=== PATIENT | male | born 1955 | race Caucasian/White ===

== ENCOUNTER 2018-08-17 15:25 | Inpatient (IN) | payer BC, OTHER ==
[~2018-08-17] VITALS: Ht 182.9 cm; Wt 84.4 kg
[2018-08-17 16:29] VITALS: BP 99/78
[2018-08-17] MEDS ORDERED: LIPITOR80 MG PO (16:50)
[2018-08-17] MEDS ORDERED: CEFUROXIME250 MG PO (16:53)
[2018-08-17] MEDS ORDERED: PREDNISONE 20 M20 MG PO (16:53)
[2018-08-17] MEDS ORDERED: LASIX 40 MG TAB40 M2 PO (16:53)
[2018-08-17] MEDS ORDERED: LOPRESSOR50 PO (16:54)
[2018-08-17] MEDS ORDERED: KLOR-CON 1010 MEQ PO (16:54)
[2018-08-17] MEDS ORDERED: XANAX 0.5 MG0.5 MG PO (16:55)
[2018-08-17] MEDS ORDERED: NORCO 5-325 TA1 EACH PO (16:56)
[2018-08-17] MEDS ORDERED: NASAL SPRAY30 ML NS (16:57)
[2018-08-17 17:07] LABS: HEMATOCRIT 50.9 % (42.0-52.0); HEMOGLOBIN 17.5 gm/dL (14.0-18.0); MCH 31.8 pg (26.0-34.0); MCHC 34.4 g/dL (28.0-37.0); MCV 92.3 fL (80.0-100.0); RBC 5.51 mil/uL (4.50-6.00); RDW 13.2 % (10.5-14.5); WBC 14.9 thou/uL (4.0-11.0)
[2018-08-17 17:19] LABS: APTT 24.5 Seconds (24.5-32.8); INR 1.1; PROTIME 11.7 Seconds (9.3-11.4)
[2018-08-17 17:33] LABS: CALCIUM 9.4 mg/dL (8.5-10.1); CREATININE 1.3 mg/dL (0.7-1.3); MAGNESIUM 2.1 mg/dL (1.8-2.4); POTASSIUM 4.3 mmol/L (3.5-5.1); TOTAL PROTEIN 6.8 g/dL (6.4-8.2)
[2018-08-17 17:45] LABS: TSH 0.756 uIU/mL (0.358-3.740)
[2018-08-17 17:47] LABS: BF NUCLEATED CELLS 3295; BF RBC 247550
[2018-08-17 17:49] LABS: CLARITY CLOUDY; COLOR RED
--- NOTE | 2018-08-17 19:21 | NUR ---
Patient arrived DA this evening. Admit with SOB and left pleural effusion. Pulmonary consult. Thoracentesis this evening, patient reports 2L of fluid off left side. Bandaid to left back, intact. Reports improvement in breathing since thoracentesis. Maintaining oyxgen saturations on 3L NC. Blood pressures soft, but holding beta fredi and Lasix at this time. Fall precautions in place. Calls appropriately for assistance. Bilateral SCDs. Admission history, education and assessment completed, along with med rec. Complaints of chronic back pain, treated with PRN [place]. Slowly progressing towards POC. Will continue to monitor.
[2018-08-17 20:00] VITALS: BP 114/77
[2018-08-17 20:48] LABS: BF MACROPHAGE 46; BF NEUTROPHILS 9; SOURCE PLEURAL; TOTAL VOLUME 60 mL
[2018-08-18 01:03] VITALS: BP 135/86
[2018-08-18 05:00] VITALS: BP 115/77
[2018-08-18 05:48] LABS: HEMATOCRIT 47.3 % (42.0-52.0); HEMOGLOBIN 16.4 gm/dL (14.0-18.0); MCH 32.1 pg (26.0-34.0); MCHC 34.6 g/dL (28.0-37.0); MCV 92.7 fL (80.0-100.0); RBC 5.1 mil/uL (4.50-6.00); RDW 13.2 % (10.5-14.5); WBC 14.4 thou/uL (4.0-11.0)
[2018-08-18 06:06] LABS: CALCIUM 8.9 mg/dL (8.5-10.1); CREATININE 1.3 mg/dL (0.7-1.3); MAGNESIUM 2.1 mg/dL (1.8-2.4); POTASSIUM 4.6 mmol/L (3.5-5.1)
--- NOTE | 2018-08-18 06:06 | NUR ---
PT MAKING PROGRESS TOWARDS GOALS. PT REPORTING THAT HE IS "BREATHING MUCH EASIER NOW." UP TO TOILET ONCE, AMBULATING THERE AND BACK WITHOUT OXYGEN. NO OBSERVABLE SOA. PT STATING HE WOULD NOT HAVE BEEN ABLE TO DO THAT YESTERDAY. SEE CHARTING.
[2018-08-18 07:11] VITALS: BP 112/74
[2018-08-18 09:07] LABS: BODY FLUID ALBUMIN 2.4 g/dL (()); BODY FLUID AMYLASE 27 U/L (()); BODY FLUID GLUCOSE 35 mg/dL (()); BODY FLUID LDH 1493 IU/L (()); BODY FLUID PROTEIN 4.1 g/dL (())
[2018-08-18 09:14] LABS: SOURCE THORACENTESIS
[2018-08-18 09:15] LABS: SOURCE THORACENTESIS
--- NOTE | 2018-08-18 10:18 | 2DMMODE ---
[facility] [employer] [place] [address] 2 D/M-MODE ECHOCARDIOGRAM Name: OSPINADANGELO Room #: 364-P ADM IN M.R.#: [id number] ������������� Admission: 08/17/18 ������������� Attend Phys: Gael Velasquez MD Discharge: ��� ������������� ��� Date of : 53 Date of Service: 08/18/18 1018 �� Report #: [id number] �������� ��������������������������������������������[id number] THIS REPORT FOR: //name// APPROVED REPORT Study performed: 08/18/2018 09:28:24 EXAM: Comprehensive 2D, Doppler, and color-flow Echocardiogram Patient Location: Echo lab Room #: 364 Status: routine BSA: 2.26 HR: 89 bpm BP: 112/74 mmHg Rhythm: NSR Other Information Study Quality: Adequate Indications Pleural effusions. Hx: CABG, COPD 2D Dimensions RVDd: 38.55 mm IVSd: 10.36 (7-11mm) LVOT Diam: 21.73 (18-24mm) LVDd: 48.78 mm PWd: 10.88 (7-11mm) LVDs: 30.39 (25-40mm) Aortic Root: 33.94 mm Volumes Left Atrial Volume (Systole) Single Plane 4CH: 42.19 mL Single Plane 2CH: 53.30 mL LA ESV Index: 22.00 mL/m2 Aortic Valve AoV Peak Claude.: 1.61 m/s AO Peak Gr.: 10.39 mmHg LVOT Max P.60 mmHg LVOT Max V: 1.18 m/s YAQUELIN Vmax: 2.72 cm2 Mitral Valve E/A Ratio: 0.8 MV Decel. Time: 167.32 ms MV E Max Claude.: 0.78 m/s [facility] [address] [place] [address] 2 D/M-MODE ECHOCARDIOGRAM Name: DANGELO OSPINA Room #: 364-P [facility]#: [id number] ������������� Admission: 08/17/18 ������������� Attend Phys: Gael Velasquez MD Discharge: ��� ������������� ��� Date of : 53 Date of Service: 08/18/18 1018 �� Report #: [id number] �������� ��������������������������������������������[id number] MV A Claude.: 0.98 m/s MV PHT: 48.52 ms IVRT: 96.89 ms Pulmonary Valve PV Peak Claude.: 1.13 m/s PV Peak Gr.: 5.09 mmHg Pulmonary Vein P Vein S: 0.68 m/s P Vein A: 0.29 m/s P Vein D: 0.57 m/s P Vein A Dur.: 107.3 msec P Vein S/D Ratio: 1.19 Tricuspid Valve RAP Estimate: 5.00 mmHg Left Ventricle The left ventricle is normal size. There is normal left ventricular wall thickness. Left ventricular systolic function is normal. LVEF is 55%. Mild diastolic dysfunction is present (impaired relaxation pattern). Right Ventricle The right ventricle is normal size. The right ventricular systolic function is normal. Atria The left atrium size is normal. The right atrium size is normal. Aortic Valve The aortic valve is normal in structure. No aortic regurgitation is present. There is no aortic valvular stenosis. Mitral Valve The mitral valve is normal in structure. There is no mitral valve regurgitation noted. No evidence of mitral valve stenosis. Tricuspid Valve The tricuspid valve is normal in structure. Trace tricuspid regurgitation. Unable to assess PA pressure. Pulmonic Valve Pulmonic valve is not well visualized. Trace pulmonic regurgitation. Great Vessels [facility] [employer] [place] [address] 2 D/M-MODE ECHOCARDIOGRAM Name: DANGELO OSPINA Room #: 364-P ADM IN M.R.#: [id number] ������������� Admission: 08/17/18 ������������� Attend Phys: Gael Velasquez MD Discharge: ��� ������������� ��� Date of : 53 Date of Service: 08/18/18 1018 �� Report #: [id number] �������� ��������������������������������������������[id number] The aortic root is normal in size. Ascending aorta is not well visualized. IVC is normal in size and collapses >50% with inspiration. Pericardium Cannot rule out small pericardial effusion vs. left pleural effusion. <Conclusion> The left ventricle is normal size. LVEF is 55%. The aortic valve is normal in structure. The mitral valve is normal in structure. The tricuspid valve is normal in structure. Trace tricuspid regurgitation. Unable to assess PA pressure. Pulmonic valve is not well visualized. Trace pulmonic regurgitation. Cannot rule out small pericardial effusion vs. left pleural effusion. ��������������������������������������������� <ELECTRONICALLY SIGNED> ���������������������������������������� By: Ga Remy MD ��������������������������������������������� 08/18/18 1018 [id number] Ga Remy MD /INF
[2018-08-18 11:01] VITALS: BP 123/80
[2018-08-18] MEDS ORDERED: TOPROL XL50 MG PO (12:52)
[2018-08-18] MEDS ORDERED: PRINIVIL20 MG PO (12:52)
[2018-08-18] MEDS ORDERED: CEFUROXIME250 MG PO (13:11)
--- NOTE | 2018-08-18 15:25 | NUR ---
INITIAL ASSESSMENT: Received consult for discharge planning and possible Home O2. SW reviewed chart and spoke with attending physician. Pt was a direct admission from [facility]. Pt with hx of COPD and CABB x 6. Pt had thoracentesis yesterday due to left sided pleural effusion. SW met with pt at bedside. Introduced role of SW. Pt is alert/orientated x 4. Pt reports he lives at home with his and son in [place]. 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 Prior to admission, pt was independent with ADLs. Pt does not use any DME. No hx of HH services or SNF/Rehab placement. Pt's PCP, Dr. Ronald oHlder, recently retired. Pt states his new PCP is Dr. Ricardo Lim at [facility]. Pt is currently off O2. Pt is hoping to discharge tomorrow. SW is following to assist as needed with discharge planning.
[2018-08-18 15:33] VITALS: BP 110/75
--- NOTE | 2018-08-18 18:01 | NUR ---
Assumed care of patient at 0700. Patient has maintained oxygen saturations on RA; does seem to drop below 90% (85-88%) with activity, but is able to purse- lip breathe and recover on own. Continue to closely monitor. Otherwise, VSS. Patient continues to feel that breathing is much improved compared to yesterday. Complaints of chronic lower back pain; controlled with PRN [place]. CT chest completed today; see results. Displays steady gait; up ad gayla in room. Encouraged to call for assistance if needed. Progressing towards POC. Will continue to monitor.
[2018-08-18 18:49] VITALS: BP 124/79
[2018-08-19 03:08] LABS: HEMATOCRIT 46.5 % (42.0-52.0); HEMOGLOBIN 16.3 gm/dL (14.0-18.0); MCH 32.5 pg (26.0-34.0); MCV 92.7 fL (80.0-100.0); RBC 5.02 mil/uL (4.50-6.00); RDW 13.1 % (10.5-14.5); WBC 19.3 thou/uL (4.0-11.0)
[2018-08-19 03:36] LABS: CALCIUM 9.3 mg/dL (8.5-10.1); CREATININE 1.2 mg/dL (0.7-1.3); MAGNESIUM 2.4 mg/dL (1.8-2.4); POTASSIUM 4.6 mmol/L (3.5-5.1)
[2018-08-19 03:55] VITALS: BP 165/85
--- NOTE | 2018-08-19 04:40 | NUR ---
PT MAKING SLOW PROGRESS TOWARDS GOALS. LUNGS WITH FAINT WHEEZING OVER ALL MORENO, DIMINISHED ON BOTH SIDES THOUGH MUCH GREATER ON THE LEFT. PT REPORTS HE IS STILL BREATHING MUCH BETTER THAN BEFORE HE CAME INTO THE HOSPITAL. THIS AM O2 AT ON ROOM AIR 86-87%. O2 STARTED AT 3L PER NC=92%.
[2018-08-19 08:30] VITALS: BP 126/84
[2018-08-19 11:28] VITALS: BP 122/84
[2018-08-19] MEDS ORDERED: AUGMENTIN 875-1 EACH PO (14:03)
[2018-08-19] MEDS ORDERED: VENTOLIN HFA 1818 GM INH (14:04)
[2018-08-19] MEDS ORDERED: PREDNISONE 10 M10 MG PO (14:04)
--- NOTE | 2018-08-19 14:09 | NUR ---
SW reviewed chart and spoke with nursing and attending physician. Pt is progressing towards goals for discharge. Rest/exercise oximetry ordered to evaluate pt for possible home O2. Pt was 88% on RA earlier today. Awaiting results. Pt has discharge orders. SW notified [facility] liaison to see if they take pt's insurance. SW is following to assist as needed with discharge planning.
[2018-08-19 14:33] VITALS: BP 122/84
[2018-08-19] MEDS ORDERED: ALPRAZOLAM 0.50.5 M1 PO (15:10)
[2018-08-19] MEDS ORDERED: HYDROCODONE-AP1 EAC6 PO (15:10)
--- NOTE | 2018-08-20 16:06 | PATH ---
[facility] [address] [address] PATHOLOGY RPT PROCEDURE Name: DANGELO OSPINA Room #: 364-P DIS IN M.R.#: [id number] ������������������ Admission: 08/17/18 ������������������ Date of : 53 Discharge: 08/19/18 Report #: [id number] Path Case #: [id number] Note [facility] Accession Number: [id number] TESTS RESULT FLAG UNITS REF RANGE LAB Clinician Provided Cytology Information No. of containers..01 Other (Miscellaneous) Source: [A] 01 PLEURAL FLUID DIAGNOSIS: [A] 02 PLEURAL FLUID POSITIVE FOR MALIGNANT CELLS. METASTATIC CARCINOMA IS PRESENT. THIS INTERPRETATION INCLUDES EVALUATION OF A CELL BLOCK. Comment: Examination shows aggregates and clusters of cells comprised of high nuclear to cytoplasmic ratio, abundant nuclear pleomorphism and ample cytoplasm. Based on the finding of lung mass along with mediastinal adenopathy, a panel of immunohistochemical stains is ordered. The cells show strong membranous reactivity to CK7, rare cells are reactive to Napsin A and approximately 10 percent of the cells show strong nuclear reactivity to TTF-1. CK20, p63, calretinin (reactive in the mesothelial cells),and desmin (reactive within the mesothelial cells)are non-reactive within the malignant cells. Based on the morphology and the immunohistochemical staining pattern, the tumor likely represents a metastatic adenocarcinoma of lung origin within the pleural fluid. Clinical correlation is required. Case is coreviewed by Dr. Madi Levy. The preliminary findings of this case were discussed with Dr. Ad Gonzales in the evening of 08/19/18. Pathologist ICD10: 02 J91.0 Signed out by: Cindy Aleman MD, Pathologist NPI- [id number] Performed by: Ayaan Gutiérrez, Information Technology Technician ([facility]) Gross description: 01 15ML, BRIGHT RED, CLOUDY /LCS FLAG LEGEND: L-Low Normal,H-High Normal,LL-Alert Low,HH-Alert High <-Panic Low,>-Panic High,A-Abnormal,AA-Critical Abnormal Performed at: [address] [address] PATHOLOGY RPT PROCEDURE Name: DANGELO OSPINA Room #: 364-P DIS IN M.R.#: [id number] ������������������ Admission: 08/17/18 ������������������ Date of : 53 Discharge: 08/19/18 Report #: [id number] Path Case #: [id number] [place] [address] Jose Martin Fish MD, 02 [facility] [address] [address] Cindy Aleman MD, Specimen Comment: A courtesy copy of this report has been sent to Specimen Comment: [phone]. Specimen Comment: Report sent to Performed at: 01 [facility] [address], [place], [place] [id number] MD Jose Martin Fish MD Phone: [phone]
== END 2018-08-19 14:00 | disposition home or self-care (01) | DRG 189 ==
LOC: 3W 15:25 → ENTRNSPT 08-19 15:17 → EDTRNSPTSTS 08-19 15:26
PROVIDERS: ADMIT Internal Medicine
PROC: 0W9B3ZZ Drainage of Left Pleural Cavity, Percutaneous Approach (ICD-10-PCS; principal; 2018-08-18)
DX: J96.01 Acute respiratory failure with hypoxia (principal); J90 Pleural effusion, not elsewhere classified; J44.1 Chronic obstructive pulmonary disease with (acute) exacerbation; I25.10 Atherosclerotic heart disease of native coronary artery without angina pectoris; E78.5 Hyperlipidemia, unspecified; F41.1 Generalized anxiety disorder; E66.9 Obesity, unspecified; I50.9 Heart failure, unspecified; I11.0 Hypertensive heart disease with heart failure; R91.8 Other nonspecific abnormal finding of lung field; R59.0 Localized enlarged lymph nodes; I95.9 Hypotension, unspecified; Z95.1 Presence of aortocoronary bypass graft; Z88.2 Allergy status to sulfonamides; Z87.891 Personal history of nicotine dependence; Z68.25 Body mass index [BMI] 25.0-25.9, adult
CPT/HCPCS: 10779; 10879

== ENCOUNTER 2018-09-06 14:28 | Inpatient (IN) | payer BC, OTHER ==
[~2018-09-06] VITALS: Ht 175.3 cm; Wt 91.6 kg
--- NOTE | ~2018-09-06 | HC ---
[facility] [place] [address] [place] [address] CONSULTATION Name: DANGELO OSPINA Room #: 218-P [facility] IN M.R.#: [id number] Admission: 09/06/18 ������������������ Attend Phys: Katherine Cunningham Discharge: 09/09/18 ������������������ Date of : 53 Report #: [id number] THIS REPORT FOR: //name// CC: RYAN physician/PCP Katherine Cunningham Physician staff DATE OF SERVICE: 09/09/2018 HISTORY OF PRESENT ILLNESS: This 63-year-old white male was recently admitted to [facility] with complaints of shortness of breath and found to have a large left-sided pleural effusion. This was tapped and within 2 weeks has recurred. This hemorrhagic fluid was sent for cytology testing and reveals adenocarcinoma. Following recent 2 liter removal of additional fluid and placement of PleurX catheter, he is much less short of breath. He was seen today in consultation with his daughter regarding potential evaluation and treatment. His recent history is negative for any shaking chills or fevers. He denies new pain or masses. PAST MEDICAL HISTORY: Significant for previous diagnosis of chronic obstructive lung disease and was followed with Dr. Christian Mcleanler [facility]. PAST SURGICAL HISTORY: Previous bypass grafting x 6 in 2017 along with tonsillectomy and hernia repair. ALLERGIES: HE IS ALLERGIC TO SULFA. MEDICATIONS: As listed on the MFR. SOCIAL HISTORY: Significant for a reformed smoker who stopped approximately a year ago after 40 pack years of at least a pack of cigarettes per day. FAMILY HISTORY: Negative/noncontributory. REVIEW OF SYSTEMS: As in the history of present illness. PHYSICAL EXAMINATION: GENERAL: Shows him to be alert. HEENT: Normocephalic. NECK: Supple. CHEST: Showed coarse breath sounds with catheter on the left and diminished sounds in the left base. ABDOMEN: Soft with no organomegaly or mass. [facility] [address] [place] [address] CONSULTATION Name: DANGELO OSPINA Room #: 218-P DIS IN ..#: [id number] Admission: 09/06/18 ������������������ Attend Phys: Katherine Cunningham Discharge: 09/09/18 ������������������ Date of : 53 Report #: [id number] EXTREMITIES: No clubbing, cyanosis. He does have bilateral lower extremity edema. NEUROLOGIC: No focal localizing signs. PSYCHIATRIC: Not agitated or confused. LYMPHATICS: Did not reveal any palpable supraclavicular adenopathy though there was some fullness. HOSPITAL COURSE: Earlier CT scanning from [facility] on 08/16/2018 showed the large left-sided pleural effusion in addition to mediastinal and epicardial lymphadenopathy. He also had bilateral pulmonary infiltrates and nodules. ASSESSMENT: Stage 4 adenocarcinoma/presumed non-small cell lung cancer. PLAN: We discussed that this is a nonsurgical incurable scenario though clearly is treatable. He wishes to pursue further therapy and we have discussed performing a mutational testing on his peripheral blood as the cytology would not have adequate material for that to take place. The fact that he is a smoker if this is non-small cell lung cancer, it is unlikely that EGFR would be positive for targetable mutations. In that scenario, a typical treatment will be with chemotherapy and discussed possible addition of checkpoint inhibitor in conjunction. A PET scan will be performed for further staging purposes and also to rule out a possible alternative primary site with metastatic disease to the lung. He is feeling better and is anxious to be discharged. I will schedule scan, laboratory testing to be performed as an outpatient and see him when the results are known. Thanks for allowing me to see him in consultation and allowing me to participate in his care. ��������������������������������������������� ���������������������������������������� By: ��������������������������������������������� 2215 1844 Aleisha Mccoy MD /nt
[~2018-09-06 14:28] MED LIST: ALPRAZOLAM 0.50.5 M1 PO; AUGMENTIN 875-1 EACH PO; CEFUROXIME250 MG PO; HYDROCODONE-AP1 EAC6 PO; KLOR-CON 1010 MEQ PO; LASIX 40 MG TAB40 M2 PO; LIPITOR80 MG PO; LOPRESSOR50 PO; NASAL SPRAY30 ML NS; NORCO 5-325 TA1 EACH PO; PREDNISONE 10 M10 MG PO; PREDNISONE 20 M20 MG PO; PRINIVIL20 MG PO; TOPROL XL50 MG PO; VENTOLIN HFA 1818 GM INH; XANAX 0.5 MG0.5 MG PO
[2018-09-06] MEDS ORDERED: PREDNISONE 5 MG5 M1 PO (16:54)
[2018-09-06] MEDS ORDERED: WELLBUTRIN SR100 MG PO (16:55)
[2018-09-06] MEDS ORDERED: TYLENOL325 M1 PO (16:55)
[2018-09-06] MEDS ORDERED: LASIX 40 MG TAB40 M2 PO (16:56)
[2018-09-06] MEDS ORDERED: ASPIRIN81 M2 PO (16:56)
[2018-09-06] MEDS ORDERED: KLOR-CON 1010 MEQ PO (16:56)
[2018-09-06] MEDS ORDERED: CYMBALTA30 MG PO (16:56)
[2018-09-06] MEDS ORDERED: ZESTRIL10 MG PO (16:57)
[2018-09-06] MEDS ORDERED: NICOTINE TRANSD21 M1 (16:57)
[2018-09-06 17:00] VITALS: BP 116/90
--- NOTE | 2018-09-06 18:36 | NUR ---
PATIENT ADMITTED TO CCU FROM [facility] ER. ON 4L OXYGEN NC. SINUS TACH ON THE MONITOR. HAD LEFT SIDED THORACENTESIS DONE IN MORNING SUN ER. 2L REMOVED. ADMISSION HISTORY AND ASSESSMENTS COMPLETE. MED REC UP TO DATE. PT CURRENTLY HAVING A CT OF CHEST. COMPLAINS OF CHRONIC BACK PAIN. WAITING FOR PRN HYDROCODONE TO BE VERIFIED BY PHARMACY.
[2018-09-06 20:29] VITALS: BP 132/78
[2018-09-07 04:14] LABS: BASOPHILS 0.2 % (0.0-2.0); HEMATOCRIT 47.6 % (42.0-52.0); HEMOGLOBIN 16.5 gm/dL (14.0-18.0); LYMPHOCYTES 2.6 % (24.0-44.0); MCH 32.1 pg (26.0-34.0); MCHC 34.8 g/dL (28.0-37.0); MCV 92.5 fL (80.0-100.0); MONOCYTES 1.7 % (1.0-8.0); PLATELET COUNT 301 thou/uL (150-400); POLYS 95.5 % (36.0-66.0); RBC 5.15 mil/uL (4.50-6.00); RDW 13.7 % (10.5-14.5); WBC 10.4 thou/uL (4.0-11.0)
[2018-09-07 04:17] LABS: CALCIUM 9.3 mg/dL (8.5-10.1); CREATININE 1.2 mg/dL (0.7-1.3); POTASSIUM 4.2 mmol/L (3.5-5.1)
[2018-09-07 05:17] VITALS: BP 137/91
--- NOTE | 2018-09-07 07:35 | NUR ---
ASSUME CARE 1900. PT/VITALS STABLE. CHRONIC BACK PAIN NOTED. HYDROCODONE FOR RELIEF. PT ON 4LNC. THORACENTESIS DONE ON ADMISSION. PT STATES HE FEELS MUCH BETTER NOW THAN WHEN HE CAME IN. ASSESSMETN CHARTED. PROGRESSING WELL WITH POC. PLAN IS TO CONTINUE TO MONITOR RESPIRATORY FUNCTION. WILL CONTINUE TO FOLLOW WITH POC
[2018-09-07 08:00] VITALS: BP 120/72
[2018-09-07 12:21] VITALS: BP 116/73
[2018-09-07 16:00] VITALS: BP 125/86
[2018-09-07 19:05] VITALS: BP 131/90
[2018-09-08] VITALS (7 sets, daily range): BP systolic 123–143; BP diastolic 78–90
--- NOTE | 2018-09-08 03:33 | NUR ---
ASSUMED PT CARE AT 1900. PT A/OX4, VITAL SIGNS STABLE, ASSESSMENT CHARTED. PAIN ADEQAUTELY MANAGED WITH PAIN MEDICATION. NO COMPLAINTS OF CHEST PAIN OR SOB. PT ON 4L O2. RESTED WELL THROUGH THE NIGHT. NPO AT MIDNIGHT FOR PROCEDURE. PROGRESSING TOWARD PLAN OF CARE. WILL CONTINUE TO MONITOR.
[2018-09-08 04:07] LABS: HEMATOCRIT 44.9 % (42.0-52.0); HEMOGLOBIN 15.8 gm/dL (14.0-18.0); MCH 32.4 pg (26.0-34.0); MCHC 35.2 g/dL (28.0-37.0); MCV 92.2 fL (80.0-100.0); RBC 4.87 mil/uL (4.50-6.00); RDW 13.4 % (10.5-14.5); WBC 17.7 thou/uL (4.0-11.0)
[2018-09-08 04:11] LABS: CALCIUM 9.4 mg/dL (8.5-10.1); CREATININE 1.1 mg/dL (0.7-1.3); POTASSIUM 3.7 mmol/L (3.5-5.1)
[2018-09-08 15:17] LABS: INR 1.2; PROTIME 12.1 Seconds (9.3-11.4)
--- NOTE | 2018-09-08 16:50 | NUR ---
Met with patient, and family at bedside. patient admitted pleural effusion and today rec pluerx cath placement. 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 All needs on one level in home. Patient is wanting home health at mo. PCP Dr Coffman. Patient has home oxygen via [employer] from [place] 4 liters at rest 5 liters with activity.
[2018-09-09] VITALS (7 sets, daily range): BP systolic 115–136; BP diastolic 76–99
--- NOTE | 2018-09-09 03:37 | NUR ---
ASSUMED PT CARE AT 1900. PT A/OX4, VITAL SIGNS STABLE, ASSESSMENT CHARTED. PAIN ADEQAUTELY MANAGED WITH PAIN MEDICATION. LEFT LATERAL DRAINAGE SITE DRESSING INTACT. PT RESTED WELL THROUGH THE NIGHT. PROGRESSING TOWARD PLAN OF CARE. WILL CONTINUE TO MONITOR.
--- NOTE | 2018-09-09 12:08 | NUR ---
FAXED REFERRAL TO A HH SPOKE WITH ADM. THEY RECEIVED REFERRAL AND CAN ACCEPT AT [place] AND THEY WILL DO A BEDSIDE VISIT TODAY WITH PT. DCP TO FOLLOW.
--- NOTE | 2018-09-09 12:19 | NUR ---
Followup visit made with pt at bedside. Possible dc home later today pending onc consult and recommendations. Pleurax cath in place and pt has teaching kit and supplies. Nursing to do instruction. Pt agreeable to RN visits at [place]. He has used [facility] in the past and they can accept him at [facility]. Their liason is here this am to visit with the pt. Pt has home o2 in place. Dtr is here from [place]. No other cm interventions indicated at this time. will fax Hh orders to the [facility] at [facility].
[2018-09-09] MEDS ORDERED: LASIX 40 MG TAB40 M2 PO (16:51)
--- NOTE | 2018-09-09 17:57 | NUR ---
ASSESSMENT DOCUMENTED. PT ALERT AND ORIENTED. RECEIVED PRN PAIN MED FOR LEFT SIDE PAIN. SEEN BY DR. HARTLEY, DR. GARCIA, AND DR. ASCENCIO. ORDERS GIVEN TO DISCHARGE PT TO HOME. DISCHARGE INSTRUCTIONS GIVEN TO PT AND DAUGHTER. PT LEFT THE FACILITY ACCOMPANIED BY THE DAUGHTER.
[2018-09-10 10:07] VITALS: BP 120/82
--- NOTE | 2018-09-10 12:13 | NUR ---
PT. DISCHARGED TO HOME WITH [facility] LEFT IN THE EVENING DCP FAXED DC ORDERS/SUMMARY TO [facility] SPOKE WITH JAKE AND SHE RECEIVED DC ORDERS AND WILL NOTIFY PT. TIME OF VISITS, SHE ALSO WANTED TO KNOW INFO REGARDING PLEURX CATH WHICH PT. WILL BE MANAGING AT HOME HIMSELF.
== END 2018-09-09 18:03 | disposition home health service (06) | DRG 180 ==
LOC: 2N 14:28 → ENTRNSPT 09-09 17:15 → 2N 09-09 18:03
PROVIDERS: Hospitalist; Nurse Practitioner; Radiology Vascular & Interventional Radiology; ADMIT Hospitalist
PROC: 0W9B3ZZ Drainage of Left Pleural Cavity, Percutaneous Approach (ICD-10-PCS; principal; 2018-09-08)
DX: C34.90 Malignant neoplasm of unspecified part of unspecified bronchus or lung (principal); J96.21 Acute and chronic respiratory failure with hypoxia; J91.8 Pleural effusion in other conditions classified elsewhere; J44.9 Chronic obstructive pulmonary disease, unspecified; E78.5 Hyperlipidemia, unspecified; I25.10 Atherosclerotic heart disease of native coronary artery without angina pectoris; I50.9 Heart failure, unspecified; I95.9 Hypotension, unspecified; F41.9 Anxiety disorder, unspecified; M54.9 Dorsalgia, unspecified; I11.0 Hypertensive heart disease with heart failure; G89.29 Other chronic pain; E66.9 Obesity, unspecified; R59.9 Enlarged lymph nodes, unspecified; Z79.82 Long term (current) use of aspirin; Z88.6 Allergy status to analgesic agent; Z95.1 Presence of aortocoronary bypass graft; Z87.891 Personal history of nicotine dependence; Z82.49 Family history of ischemic heart disease and other diseases of the circulatory system; Z83.6 Family history of other diseases of the respiratory system; Z80.9 Family history of malignant neoplasm, unspecified; Z68.29 Body mass index [BMI] 29.0-29.9, adult; Z79.899 Other long term (current) drug therapy
CPT/HCPCS: 10081; 10797